=== PATIENT | male | born 1990 | race Caucasian/White ===

== ENCOUNTER 2020-01-08 11:20 | Emergency (ER) | payer OTHER ==
[~2020-01-08] VITALS: Ht 182.9 cm; Wt 136.0 kg
[~2020-01-08 11:20] MED LIST: DM H PO
[2020-01-08 11:30] VITALS: BP 177/106
[2020-01-08] MEDS ORDERED: AMOX1TAB61 PO (11:47)
--- NOTE | 2020-01-08 11:48 | PHYS DOC ---
Past History Past Medical History: No Pertinent History Past Surgical History: No Surgical History Alcohol Use: None Drug Use: None General Adult EDM: Chief Complaint: DENTAL PROBLEM HPI: HPI: 29-year-old male presents with right upper dental pain. The patient has had cavities in this area for some time. When he woke up this morning, he had extreme sensitivity and 1 of those cavities. Even breathing and air is painful. If he put some kind of packing against that the pain is relieved. He denies fever chills. He has no other complaints. He does not have dental insurance. Review of Systems: Review of Systems: Constitutional: Denies fever or chills Eyes: Denies change in visual acuity HENT: Dental pain Respiratory: Denies cough or shortness of breath Cardiovascular: Denies chest pain or edema GI: Denies abdominal pain, nausea, vomiting, bloody stools or diarrhea : Denies dysuria Musculoskeletal: Denies back pain or joint pain Integument: Denies rash Neurologic: Denies headache, focal weakness or sensory changes Endocrine: Denies polyuria or polydipsia Lymphatic: Denies swollen glands Psychiatric: Denies depression or anxiety Heart Score: Risk Factors: Risk Factors: DM, Current or recent (<one month) smoker, HTN, HLP, family history of CAD, obesity. Risk Scores: Score 0 - 3: 2.5% MACE over next 6 weeks - Discharge Home Score 4 - 6: 20.3% MACE over next 6 weeks - Admit for Clinical Observation Score 7 - 10: 72.7% MACE over next 6 weeks - Early Invasive Strategies Allergies: Allergies: Allergies Coded Allergies Type Severity Reaction Last Updated Verified No Known Drug Allergies 01/08/20 No Physical Exam: PE: Constitutional: Well developed, well nourished, morbidly obese, no acute distress, non-toxic appearance. [] HENT: Normocephalic, atraumatic, bilateral external ears normal, oropharynx moist, no oral exudates, nose normal. Right upper dental cavities through to the nerve. [] Eyes: PERRLA, EOMI, conjunctiva normal, no discharge. [] Neck: Normal range of motion, no tenderness, supple, no stridor. [] Cardiovascular:Heart rate regular rhythm, no murmur [] Lungs & Thorax: Bilateral breath sounds clear to auscultation [] Abdomen: Bowel sounds normal, soft, no tenderness, no masses, no pulsatile mas ses. [] Skin: Warm, dry, no erythema, no rash. [] Back: No tenderness, no CVA tenderness. [] Extremities: No tenderness, no cyanosis, no clubbing, ROM intact, no edema. [] Neurologic: Alert and oriented X 3, normal motor function, normal sensory function, no focal deficits noted. [] Psychologic: Affect normal, judgement normal, mood normal. [] Current Patient Data: Vital Signs: Vital Signs Date Time Temp Pulse Resp B/P (MAP) Pulse Ox O2 Delivery O2 Flow Rate FiO2 01/08/20 11:30 97.7 81 18 177/106 (129) 97 Room Air EKG: EKG: [] Radiology/Procedures: Radiology/Procedures: [] Course & Med Decision Making: Course & Med Decision Making Pertinent Labs and Imaging studies reviewed. (See chart for details) The area around the cavity is erythematous. I will cover him with an antibiotic for infection prophylaxis. I recommended the patient go to the store and get dental putty to pack in the open area. This should significantly improve his pain. The needs to go to a dentist for definitive care. He is stable for discharge at this time. [] Dragon Disclaimer: Dragon Disclaimer: This electronic medical record was generated, in whole or in part, using a voice recognition dictation system. Departure Departure: Impression: Primary Impression: Pain due to dental caries Disposition: 01 HOME/RESIDENCE PRIOR TO ADM Condition: STABLE Referrals: PCP,NO (PCP) Patient Instructions: Benzocaine mouth gel, ointment, solution, or dental paste, Dental Pain, [id number] Additional Instructions: When you strip picker your antibiotic prescription, asked the pharmacist for dental putty for broken teeth. This should significantly improve your pain if it is placed on the area and sealed well. Scripts Amoxicillin/Potassium Clav (AUGMENTIN 875-125 TABLET) 1 Each Tablet 1 TAB PO BID for dental infection for 7 Days, #14 TAB 0 Refills Prov: YAIR MOORE DO 01/08/20 Justification of Admission: Justification of Admission: Justification of Admission Dx: N/A YAIR MOORE DO Jan 08, 2020 11:48
== END 2020-01-08 11:56 | disposition home or self-care (01) ==
LOC: ER 11:20
DX: K02.9 Dental caries, unspecified (principal)
CPT/HCPCS: 99283

== ENCOUNTER 2020-11-21 09:04 | Emergency (ER) | payer OTHER ==
[~2020-11-21] VITALS: Ht 182.9 cm; Wt 136.0 kg
[~2020-11-21 09:04] MED LIST changes: +AMOX1TAB61 PO
[2020-11-21] MEDS ORDERED: CEPH500C PO (09:47)
--- NOTE | 2020-11-21 09:47 | PHYS DOC ---
Past History Past Medical History: No Pertinent History Past Surgical History: No Surgical History Alcohol Use: None Drug Use: None Adult General Chief Complaint Chief Complaint: LACERATION/AVULSION [facility] HPI Patient is a 30-year-old previously healthy male who presents to the emergency room complaining of swelling around laceration from Saturday. Patient states that he got his finger working on a car on Saturday. He states he has been trying to keep it clean and covered since that time. He feels like the area is starting to swell and is concerned it might be infected. He does not know his last tetanus shot. He denies any other injuries. He denies this being an injection injury. Review of Systems Review of Systems Complete ROS is negative unless otherwise documented in HPI Allergies Allergies Allergies Coded Allergies Type Severity Reaction Last Updated Verified No Known Drug Allergies 01/08/20 No Physical Exam Physical Exam General: Awake, alert, NAD. Well Nourished, well hydrated. Cooperative HEENT: Atraumatic, EOMI, PERRL, airway patent, moist oral mucosa Neck: Supple, trachea midline Respiratory: CTA bilaterally, normal effort, no wheezing/crackles CV: RRR, no murmur, cap refill <2 GI: Soft, nondistended, nontender, no masses MSK: No obvious deformities Skin: Warm, dry. Right hand: Small closed laceration less than 1 cm to the tip of the second finger, minimal swelling, no erythema, no drainage, full range of motion, intact sensation Neuro: A&O x3, speech NL, sensory and motor grossly intact, no focal deficits Psych: Normal affect, normal mood, not suicidal or homicidal EKG EKG [] Radiology/Procedures Radiology/Procedures [] Heart Score C/O Chest Pain: N/A Risk Factors: Risk Factors: DM, Current or recent (<one month) smoker, HTN, HLP, family history of CAD, obesity. Risk Scores: Risk Factors: DM, Current or recent (<one month) smoker, HTN, HLP, family history of CAD, obesity. Course & Med Decision Making Course & Med Decision Making Pertinent Labs and Imaging studies reviewed. (See chart for details) Patient is 30-year-old male who presents to the emergency room complaining of swelling around a laceration from Saturday. Fever does not appear to be infected at this time. He does have full range of motion. We will write him for antibiotics in case he does have increased swelling or any kind of redness surrounding the wound as it was a dirty wound that was not closed. We have discussed the signs and symptoms of infection that would require him to take antibiotics. Patient states understanding. Tetanus was updated. Patient's test results and vitals while in the ED were fully reviewed and discussed with the patient. Patient is stable and at this time does not need admission to the hospital. We have discussed strict return precautions and the importance of following up with their Primary Care Physician. Patient stated understanding and was given an opportunity to ask any questions. Patient is in agreement with plan. Dragon Disclaimer Dragon Disclaimer This electronic medical record was generated, in whole or in part, using a voice recognition dictation system. Departure Departure: Impression: Primary Impression: Laceration of finger Disposition: HOME / SELF CARE / HOMELESS Condition: STABLE Referrals: PCP,NO (PCP) Patient Instructions: Fingertip Laceration Scripts Cephalexin (CEPHALEXIN) 500 Mg Capsule 1 CAP PO TID for infx for 7 Days, #21 CAP Prov: HAZEL BRADLEY MD 11/21/20 HAZEL BRADLEY MD Nov 21, 2020 09:47
[2020-11-21] MEDS ORDERED: DIPH,PERTUSS(ACELL),TET VAC/PF 0.5 ML SYRINGE. VAX IM ONE (10:00)
[2020-11-21 10:10] VITALS: BP 156/92
== END 2020-11-21 10:22 | disposition home or self-care (01) ==
LOC: ER 09:04
DX: S61.210A Laceration without foreign body of right index finger without damage to nail, initial encounter (principal); W26.8XXA Contact with other sharp object(s), not elsewhere classified, initial encounter; Y93.89 Activity, other specified; Y92.89 Other specified places as the place of occurrence of the external cause; Y99.8 Other external cause status
CPT/HCPCS: 90471; 90715; 99283

== ENCOUNTER 2021-03-28 02:19 | Emergency (ER) | payer OTHER ==
[~2021-03-28] VITALS: Ht 175.3 cm; Wt 131.1 kg
[~2021-03-28 02:19] MED LIST changes: +CEPH500C PO
--- NOTE | 2021-03-28 02:26 | PHYS DOC ---
Past History Past Medical History: No Pertinent History Past Surgical History: No Surgical History Alcohol Use: Rarely Drug Use: None General Adult HPI: HPI: ".. I got a dental apt. coming up.. but I just need some antibiotic....and some pain meds to get through the night..." " These three are killing me.. " ( Points to 11,12, 13) Pt. Patient is a 30 year old male who presents with above hx and complaints of dental pain. Pt. has fracture teeth 11,12, 13 with infection. Pt. does have extensive area of dental decay. There is surrounding gingivitis particularly in area 11,12,13. Patient has no trismus. No history immunosuppression. No history of recent travel. No specific ill contacts. Does have a follow-up dental appointment next week. Not currently on antibiotics. Patient has attempted to use [id number] temporary fillings in the teeth to relieve pain. Review of Systems: Review of Systems: Constitutional: Denies fever or chills Eyes: Denies change in visual acuity HENT: Complains of dental pain Respiratory: Denies cough or shortness of breath Cardiovascular: Denies chest pain or edema GI: Denies abdominal pain, nausea, vomiting, bloody stools or diarrhea : Denies dysuria Musculoskeletal: Denies back pain or joint pain Integument: Denies rash Neurologic: Denies headache, focal weakness or sensory changes Endocrine: Denies polyuria or polydipsia Lymphatic: Denies swollen glands Psychiatric: Denies depression or anxiety Family History: Family History: Noncontributory to presentation Current Medications: Current Meds: See nursing for home meds Allergies: Allergies: Allergies Coded Allergies Type Severity Reaction Last Updated Verified No Known Drug Allergies 01/08/20 No Physical Exam: PE: Constitutional: In acute distress, non-toxic appearance. [] HENT: Normocephalic, atraumatic, bilateral external ears normal, oropharynx moist, no oral exudates, nose normal. [Sent to dental decay. Teeth 03/24/2013 and the most tender tonight. No trismus. Eyes: PERRLA, EOMI, conjunctiva normal, no discharge. [] Neck: Normal range of motion, no tenderness, supple, no stridor. [] Cardiovascular:Heart rate regular rhythm, no murmur [] Lungs & Thorax: Bilateral breath sounds apex scattered wheezes auscultation [] Abdomen: Bowel sounds normal, soft, no tenderness, no masses, no pulsatile masses. Base. Skin: Warm, dry, no erythema, no rash. [] Back: No tenderness, no CVA tenderness. [] Extremities: No tenderness, no cyanosis, no clubbing, ROM intact, no edema. [] Neurologic: Alert and oriented X 3, normal motor function, normal sensory function, no focal deficits noted. [] Psychologic: Affect is calm judgement normal, mood normal. [] EKG: EKG: [] Radiology/Procedures: Radiology/Procedures: [] Heart Score: C/O Chest Pain: N/A Risk Factors: Risk Factors: DM, Current or recent (<one month) smoker, HTN, HLP, family history of CAD, obesity. Risk Scores: Score 0 - 3: 2.5% MACE over next 6 weeks - Discharge Home Score 4 - 6: 20.3% MACE over next 6 weeks - Admit for Clinical Observation Score 7 - 10: 72.7% MACE over next 6 weeks - Early Invasive Strategies Course & Med Decision Making: Course & Med Decision Making Pertinent Labs and Imaging studies reviewed. (See chart for details) Patient to keep dental appointment. Patient take Tylenol and ibuprofen for pain. Patient take Keflex 500 mg 3 times a day. Patient follow-up primary care. Patient return if any concerns. Impression: 1. Fractured teeth at 11,12 with 13 2. Dental decay 3. Gingivitis 4. Dental infection. [] Dragon Disclaimer: Dragon Disclaimer: This electronic medical record was generated, in whole or in part, using a voice recognition dictation system. Departure Departure: Referrals: PCP,NO (PCP) Scripts Cephalexin (KEFLEX) 500 Mg Capsule 500 MG PO TID for dental infection for 10 Days, #30 CAP Prov: CHERYL SWANSON MD 03/28/21 Brook Disclaimer This chart was dictated in whole or in part using Voice Recognition software in a busy, high-work load, and often noisy Emergency Department environment. It may contain unintended and wholly unrecognized errors or omissions. CHERYL SWANSON MD Mar 28, 2021 02:26
[2021-03-28] MEDS ORDERED: KETOROLAC 60 MG/2 ML VIAL. IM ONE (02:30)
[2021-03-28] MEDS ORDERED: cefTRIAXone IM 1 GM VIAL IM ONE (02:30)
[2021-03-28] MEDS ORDERED: oxyCODONE/APAP 5/325 1 TAB TABLET PO ONE (02:30)
[2021-03-28] MEDS ORDERED: CEPH500C PO (02:40)
[2021-03-28 02:45] VITALS: BP 148/72
== END 2021-03-28 02:57 | disposition home or self-care (01) ==
LOC: ER 02:19
DX: S02.5XXA Fracture of tooth (traumatic), initial encounter for closed fracture (principal); K02.9 Dental caries, unspecified; K05.10 Chronic gingivitis, plaque induced; K04.7 Periapical abscess without sinus; X58.XXXA Exposure to other specified factors, initial encounter; Y93.89 Activity, other specified; Y92.89 Other specified places as the place of occurrence of the external cause; Y99.8 Other external cause status
CPT/HCPCS: 96372; 99284; J0696; J1885

== ENCOUNTER 2021-04-10 10:14 | Emergency (ER) | payer OTHER ==
[~2021-04-10] VITALS: Ht 182.9 cm; Wt 128.6 kg
[2021-04-10 10:20] VITALS: BP 144/93
[2021-04-10] MEDS ORDERED: CLIN-95 PO (10:58)
[2021-04-10] MEDS ORDERED: HYDR-2155 PO (10:58)
--- NOTE | 2021-04-10 10:59 | PHYS DOC ---
Past History Past Medical History: No Pertinent History (MIN SANTANA) Past Surgical History: No Surgical History (MIN SANTANA) Smoking: Cigarettes Alcohol Use: None Drug Use: None (MIN SANTANA) General Adult EDM: Chief Complaint: DENTAL PROBLEM HPI: HPI: Patient is a 30 year old male who presents with left-sided dental pain. Patient states on Saturday last week (04/05/2021) he had 2 lower molars removed from the left side. He was prescribed amoxicillin and hydrocodone. He has experienced increased pain and swelling as well as a foul taste in his mouth. He was unable to contact his dentist office due to the holiday and then it being the weekend. Patient reports his has tried calling the dental office multiple times this morning, without answer or response. Patient reports he is out of pain medication and has taken the antibiotics as prescribed. (MIN SANTANA) Review of Systems: Review of Systems: Constitutional: Denies fever or chills Eyes: Denies change in visual acuity or periorbital swelling HENT: See HPI Respiratory: Denies cough or shortness of breath Cardiovascular: Denies chest pain or edema GI: Denies abdominal pain, nausea, vomiting, bloody stools or diarrhea (MIN SANTANA) Allergies: Allergies: Allergies Coded Allergies Type Severity Reaction Last Updated Verified No Known Drug Allergies 01/08/20 No (MIN SANTANA) Physical Exam: PE: Constitutional: Well developed, well nourished, no acute distress, non-toxic appearance. HENT: Atraumatic, bilateral external ears normal, oropharynx moist, rear lower jaw with white exudate/swelling/erythema where rear molars were removed, submandibular and mandibular swelling appreciated on inspection of the face. Eyes: PERRLA, EOMI, conjunctiva normal, no discharge, no periorbital swelling. Neck: Normal range of motion, no tenderness, no lymphadenopathy, no stridor. Cardiovascular: Heart rate regular rhythm, no murmur. Lungs & Thorax: Bilateral breath sounds clear to auscultation. (MIN SANTANA) Current Patient Data: Vital Signs: VS - Last 72 Hours, by Label Date Time Temp Pulse Resp B/P (MAP) Pulse Ox O2 Delivery O2 Flow Rate FiO2 11/29/21 10:20 98.2 71 20 144/93 (110) 98 Room Air (MIN SANTANA) Heart Score: C/O Chest Pain: No (MIN SANTANA) Course & Med Decision Making: Course & Med Decision Making Pertinent Labs and Imaging studies reviewed. (See chart for details) Patient has been taking amoxicillin, possibly Augmentin, for 5 days with current signs of infection. I will prescribe clindamycin and instruct the patient to stop taking the Augmentin. Additionally, I checked [facility] for the pain medication prescribed by the patient's dentist. He will be provided with hydrocodone 5 for an additional 4 days. Patient is advised to continue calling the dentist to obtain a follow-up appointment. Patient understands and is agreeable to discharge (MIN SANTANA) Course & Med Decision Making I was the Attending physician on the above date of service of this patient. This patient was evaluated, examined, treated, and dispositioned from the emergency department by the mid-level practitioner. Although I was working at the time , no assistance was requested. Electronically signed, Deandra Solis DO (DEANDRA SOLIS DO) Brook Disclaimer: Brook Disclaimer: This electronic medical record was generated, in whole or in part, using a voice recognition dictation system. (MIN SANTANA) Departure Departure: Impression: Primary Impression: Dental infection Disposition: HOME / SELF CARE / HOMELESS Condition: STABLE Referrals: PCP,NO (PCP) Patient Instructions: Dental Pain, [id number] Scripts Hydrocodone Bit/Acetaminophen (HYDROCODONE-APAP 5-325 ) 1 Each Tablet 1 TAB PO PRN Q6HRS PRN for PAIN for 4 Days, #16 TAB 0 Refills Prov: MIN SANTANA 04/10/21 Clindamycin Hcl (CLINDAMYCIN HCL) 300 Mg Capsule 1 CAP PO TID for dental infection for 7 Days, #21 CAP Prov: MIN SANTANA 04/10/21 MIN SANTANA Apr 10, 2021 10:59 DEANDRA SOLIS DO Apr 10, 2021 15:53
== END 2021-04-10 11:06 | disposition home or self-care (01) ==
LOC: ER 10:14
DX: K04.7 Periapical abscess without sinus (principal); F17.210 Nicotine dependence, cigarettes, uncomplicated
CPT/HCPCS: 99283

== ENCOUNTER 2021-04-12 14:30 | Emergency (ER) | payer OTHER ==
[~2021-04-12 14:30] MED LIST changes: +CLIN-95 PO; +HYDR-2155 PO
== END 2021-04-12 14:46 | disposition left against medical advice (07) ==
LOC: ER 14:30
DX: K91.840 Postprocedural hemorrhage of a digestive system organ or structure following a digestive system procedure (principal); Z53.21 Procedure and treatment not carried out due to patient leaving prior to being seen by health care provider